=== PATIENT | female | born 1965 | race Caucasian/White ===

== ENCOUNTER → 2017-12-25 | Outpatient (CLI) | payer BC ==
--- NOTE | 2017-12-29 10:23 | MM ---
Reason for exam: screening (asymptomatic). Last mammogram was performed 9 years and 3 months ago. History: Family history of breast cancer in mother at age 52. Taking estrogen beginning at age 43. Physical Findings: A clinical breast exam by your physician is recommended on an annual basis and results should be correlated with mammographic findings. MG 3D Screening Mammo W/Cad Bilateral CC and MLO view(s) were taken. Prior study comparison: September 20, 2008, bilateral digital screening mammogram. The breast tissue is heterogeneously dense. This may lower the sensitivity of mammography. No significant changes when compared with prior studies. ASSESSMENT: Negative, BI-RAD 1 RECOMMENDATION: Routine screening mammogram of both breasts in 1 year.
== END | disposition home or self-care (01) ==
LOC: RADMAMWWP 16:38
PROVIDERS: ATTEND Family Medicine
DX: Z12.31 Encounter for screening mammogram for malignant neoplasm of breast (principal)
CPT/HCPCS: 77063; 77067

== ENCOUNTER → 2018-02-11 | Outpatient (CLI) | payer BC ==
--- NOTE | 2018-02-11 11:22 | XR ---
EXAMINATION TYPE: XR chest 2V DATE OF EXAM: 02/11/2018 COMPARISON: NONE HISTORY: Chest pain TECHNIQUE: Frontal and lateral views of the chest are obtained. FINDINGS: There is no focal air space opacity. No evidence for pneumothorax. No pleural effusion. The cardiac silhouette size is within normal limits. The osseous structures are grossly intact. IMPRESSION: 1. No acute cardiopulmonary process.
== END | disposition home or self-care (01) ==
LOC: RADXRMAIN 10:42
PROVIDERS: ATTEND Family Medicine
DX: R63.4 Abnormal weight loss (principal)
CPT/HCPCS: 71046

== ENCOUNTER → 2018-02-17 | Day surgery (SDC) | payer BC ==
[2018-02-11 15:35] VITALS: BMI 21.1
[~2018-02-17] MED LIST: LACTATED RINGERS 1,000 ML IV SCH; LIDOCAINE 1% 20 ML VIAL (10MG/ML) FOR IV START INTRADERMA PRN; PROPOFOL 10 MG/ML 20 ML VIAL IV ONE
--- NOTE | 2018-02-17 07:33 | P.GSHP ---
History of Present Illness H&P Date: 02/17/18 CHIEF COMPLAINT: Colon screen HISTORY OF PRESENT ILLNESS: The patient is a 52-year-old female who presents for colon screen. Lower endoscopy was offered for further evaluation and management. PAST MEDICAL HISTORY: Please see list. PAST SURGICAL HISTORY: Please see list. MEDICATIONS: Please see list. ALLERGIES: Please see list. SOCIAL HISTORY: No illicit drug use FAMILY HISTORY: No reports of Crohn disease or ulcerative colitis. REVIEW OF ORGAN SYSTEMS: CONSTITUTIONAL: No reports of fevers or chills. PHYSICAL EXAM: VITAL SIGNS: Stable GENERAL: Well-developed pleasant in no acute distress. HEENT: No scleral icterus. Extraocular movements grossly intact. Moist buccal mucosa. NECK: Supple without lymphadenopathy. CHEST: Unlabored respirations. Equal bilateral excursions. CARDIOVASCULAR: Regular rate and rhythm. Distal 2+ pulses. ABDOMEN: Soft, nontender, nondistended. MUSCULOSKELETAL: No clubbing, cyanosis, or edema. ASSESSMENT: 1. Colon screen. PLAN: 1. Recommend proceeding with a lower endoscopy Past Medical History Past Medical History: COPD Additional Past Medical History / Comment(s): STATES EARLY COPD, HEADACHES. History of Any Multi-Drug Resistant Organisms: None Reported Past Surgical History: Orthopedic Surgery, Tubal Ligation Additional Past Surgical History / Comment(s): WRIST SURGERY Past Anesthesia/Blood Transfusion Reactions: No Reported Reaction Past Psychological History: No Psychological Hx Reported Smoking Status: Heavy tobacco smoker Past Alcohol Use History: Occasional Additional Past Alcohol Use History / Comment(s): SMOKES 1 PPD, SMOKING FOR 30 YRS OR MORE. Past Drug Use History: None Reported - Past Family History Mother Family Medical History: Cancer Additional Family Medical History / Comment(s): BREAST CANCER Father Family Medical History: Cancer Additional Family Medical History / Comment(s): SKIN CANCER Medications and Allergies Home Medications Medication Instructions Recorded Confirmed Type Aspirin/Acetaminophen/Caffeine 3 each PO DIRECTED PRN 02/11/18 02/11/18 History [Excedrin Migraine Caplet] Allergies Allergy/AdvReac Type Severity Reaction Status Date / Time No Known Allergies Allergy Verified 02/11/18 15:16
[2018-02-17 08:08] VITALS: RESP 16; TEMP 98.5
--- NOTE | 2018-02-17 09:25 | P.PCN ---
Date of Procedure: 02/17/18 Description of Procedure: PREOPERATIVE DIAGNOSIS: Colonoscopy screening. POSTOPERATIVE DIAGNOSIS: Colonoscopy screening. OPERATION: Colonoscopy to the proximal ascending colon SURGEON: Zena Chen MD. ANESTHESIA: MAC. INDICATIONS: The patient is a 52-year-old female who presents for her first colonoscopy screening. Benefits and risks were described and informed consent was obtained. DESCRIPTION OF PROCEDURE: The patient had undergone Gatorade, MiraLAX and Dulcolax prep. She had been brought into the operating room and laid in the left lateral decubitus position. After adequate intravenous sedation, the rectum was examined with 2% lidocaine jelly. External hemorrhoids were encountered. The rectal tone was within normal limits. No lesions were palpated in the rectal vault. An Olympus colonoscope was advanced to the proximal ascending colon. The patient had a moderately redundant and tortuous sigmoid colon requiring exchange to a pediatric colonoscope. Despite provocative measures, the scope was advanced ascending colon. The prep was excellent with clear visualization of the mucosal folds. The scope was removed with visualization of each mucosal fold. No scattered diverticulosis was encountered. No colonic polyps were found. No evidence of focal colitis was found. Retroflexion of the scope demonstrated grade 1 internal hemorrhoids without active bleeding or inflammation. The colon was desufflated. The patient had tolerated the procedure well. Withdrawal time was over 6 minutes. FINDINGS: Internal hemorrhoids, grade 1 External prolapsed hemorrhoids. No arteriovenous malformations. No adenomatous polyps. No focal colitis. Moderate redundant and tortuous sigmoid colon RECOMMENDATIONS: Repeat colonoscopy in 5-7 years. With a highly redundant and tortuous colon, recommend Cologaurd Plan - Discharge Summary New Discharge Prescriptions: No Action Aspirin/Acetaminophen/Caffeine [Excedrin Migraine Caplet] 3 each PO DIRECTED PRN PRN Reason: Headache Discharge Medication List Aspirin/Acetaminophen/Caffeine [Excedrin Migraine Caplet] 3 each PO DIRECTED PRN 02/11/18 [History]
[2018-02-17 09:51] VITALS: BP 104/68; PULSE 68
== END | disposition home or self-care (01) ==
LOC: ORWHC2ENDO 07:56
PROVIDERS: ATTEND Surgery Plastic and Reconstructive Surgery
DX: Z12.11 Encounter for screening for malignant neoplasm of colon (principal); J44.9 Chronic obstructive pulmonary disease, unspecified; G43.909 Migraine, unspecified, not intractable, without status migrainosus; Q43.8 Other specified congenital malformations of intestine; F17.210 Nicotine dependence, cigarettes, uncomplicated; K64.0 First degree hemorrhoids; K64.4 Residual hemorrhoidal skin tags; Z79.82 Long term (current) use of aspirin
CPT/HCPCS: 45378; J2704

== ENCOUNTER → 2021-09-18 | Outpatient (CLI) | payer OTHER ==
[2021-09-18 17:54] LABS: Anion Gap 13.2 mmol/L (10.00-18.00); Carbon Dioxide 23.8 mmol/L (20.0-27.5); Potassium 3.4 mmol/L (3.5-5.5)
[2021-09-18 18:53] LABS: Basophils # (A) 0.09 X 10*3/uL (0.00-0.10); Basophils % (A) 1.1 %; Eosinophils # (A) 0.13 X 10*3/uL (0.04-0.35); Eosinophils % (A) 1.6 %; HCT 40.5 % (37.2-46.3); HGB 13.7 g/dL (12.0-15.0); Immature Grans, Automated 0.2 %; Lymphocytes % (A) 34.6 %; MCH 29.7 pg (27.0-32.0); MCHC 33.8 g/dL (32.0-37.0); MCV 87.7 fL (80.0-97.0); Mean Platelet Volume 9.3 fL (9.5-12.2); Monocytes # (A) 0.62 X 10*3/uL (0.20-1.00); Monocytes % (A) 7.7 %; NRBC Per 100 WBC 0 /100 WBCS (0.0-0.0); Neutrophils # (A) 4.43 X 10*3/uL (1.80-7.70); Neutrophils % (A) 54.8 %; Platelet Count 293 X 10*3/uL (140-440); RBC 4.62 X 10*6/uL (4.10-5.20); RDW 14.9 % (11.5-14.5); WBC 8.09 X 10*3/uL (4.50-10.00)
== END | disposition home or self-care (01) ==
LOC: LABPAT 12:43
PROVIDERS: ATTEND Orthopaedic Surgery Hand Surgery
DX: Z01.812 Encounter for preprocedural laboratory examination (principal); G56.01 Carpal tunnel syndrome, right upper limb
CPT/HCPCS: 80051; 85025; 93005

== ENCOUNTER 2023-05-01 09:46 | Day surgery (SDC) | payer MEDICAID, OTHER ==
[2023-04-29 16:52] VITALS: BMI 19.5
[2023-05-01 10:21] LABS: Basophils # (A) 0.1 k/uL (0-0.2); Basophils % (A) 1 %; Eosinophils # (A) 0.2 k/uL (0-0.7); Eosinophils % (A) 2 %; HCT 45.3 % (34.0-46.0); Lymphocytes # (A) 2.5 k/uL (1.0-4.8); Lymphocytes % (A) 21 %; MCH 28.9 pg (25.0-35.0); MCHC 33.2 g/dL (31.0-37.0); MCV 87.3 fL (80.0-100.0); Mean Platelet Volume 7.5; Monocytes # (A) 0.7 k/uL (0-1.0); Monocytes % (A) 6 %; Neutrophils # (A) 7.9 k/uL (1.3-7.7); Neutrophils % (A) 68 %; Platelet Count 370 k/uL (150-450); RBC 5.19 m/uL (3.80-5.40); RDW 13.5 % (11.5-15.5); WBC 11.7 k/uL (3.8-10.6)
[2023-05-01 10:38] LABS: African American GFR (CKD) 86 (>60 ml/min/1.73 sqM); Blood Urea Nitrogen 15 mg/dL (7-17); Non-African American GFR(CKD) 74 (>60 ml/min/1.73 sqM)
[2023-05-01 10:44] VITALS: BP 120/83; PULSE 94; RESP 18; TEMP 98.2
[2023-05-01] MEDS: LIDOCAINE 1% INJ 10MG/ML (20 ML MDV) SQ ONE (11:30)
--- NOTE | 2023-05-01 11:39 | P.PCN ---
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 The area of the left arm was prepped and draped in usual sterile fashion. Timeout was performed in normal fashion. Utilizing ultrasound the basilic vein was visualized and shown to be compressible without any visible thrombus. Under ultrasound guidance the basilic vein was then cannulated with a micropuncture n eedle and wire was placed under direct visualization of fluoroscopy. Introducer sheath was then placed. The catheter was measured and cut to the appropriate length which was 47 cm. The catheter was then guided through the breakaway sheath and the sheath was removed with good positioning was visualized under fluoroscopy. The catheter was pulled and flushed easily. It was then secured in place in normal fashion. Patient tolerated the procedure well was sent back to his room for recovery.
--- NOTE | 2023-05-01 12:09 | IR ---
EXAMINATION TYPE: IR cvc insert >=5 years DATE OF EXAM: 05/01/2023 COMPARISON: NONE HISTORY: Fluoroscopy time. Fluoroscopy was provided to the referring clinician.
== END 2023-05-01 12:01 | disposition home or self-care (01) ==
LOC: CATHCVL 09:46
PROVIDERS: ATTEND Surgery
DX: M86.141 Other acute osteomyelitis, right hand (principal); F17.210 Nicotine dependence, cigarettes, uncomplicated
CPT/HCPCS: 36573; 82565; 84520; 85025; C1751; C1769; J2001